=== PATIENT | female | born 1965 | race Caucasian/White ===

== ENCOUNTER 2018-05-28 09:02 | Outpatient (CLI) | payer OTHER | END 2018-05-28 09:14 | disposition home or self-care (01) | LOC: SONOGRAMA 09:02 | DX: D25.1 Intramural leiomyoma of uterus (principal) ==

== ENCOUNTER 2020-01-08 05:14 | Emergency (ER) | payer OTHER ==
[~2020-01-08] VITALS: Ht 154.9 cm; Wt 59.9 kg
== END 2020-01-08 10:22 | disposition home or self-care (01) ==
LOC: ER 05:14
DX: S43.491A Other sprain of right shoulder joint, initial encounter (principal); X50.0XXA Overexertion from strenuous movement or load, initial encounter; Y93.89 Activity, other specified; Y92.89 Other specified places as the place of occurrence of the external cause; Y99.8 Other external cause status

== ENCOUNTER 2020-05-17 08:15 | Outpatient (CLI) | payer OTHER | END 2020-05-17 08:27 | disposition home or self-care (01) | LOC: RAD 08:15 | PROVIDERS: ATTEND Internal Medicine Pulmonary Disease | DX: R05 Cough (principal) ==

== ENCOUNTER 2021-05-13 08:00 | Outpatient (CLI) | payer OTHER | END 2021-05-13 08:30 | disposition home or self-care (01) | LOC: PPH VACUNA 08:00 | PROVIDERS: ATTEND Emergency Medicine Pediatric Emergency Medicine | DX: Z23 Encounter for immunization (principal) ==

== ENCOUNTER 2021-05-13 12:59 | Outpatient (CLI) | payer OTHER | END 2021-05-13 13:09 | disposition home or self-care (01) | LOC: SONOGRAMA 12:59 → MAMO-SONO 13:15 | PROVIDERS: ATTEND Obstetrics & Gynecology | DX: N92.5 Other specified irregular menstruation (principal) ==

== ENCOUNTER 2021-11-08 07:48 | Inpatient (IN) | payer OTHER ==
[~2021-11-08] VITALS: Ht 154.9 cm; Wt 61.2 kg
== END 2021-11-15 11:25 | disposition home or self-care (01) | DRG 342 ==
LOC: ER 07:48 → SEC-K 14:38 → O/R 14:38 → SURH 11-09 09:40
PROVIDERS: ADMIT Surgery; ATTEND Surgery
PROC: BW21YZZ Computerized Tomography (CT Scan) of Abdomen and Pelvis using Other Contrast (ICD-10-PCS; 2021-11-08)
PROC: 0DTJ4ZZ Resection of Appendix, Percutaneous Endoscopic Approach (ICD-10-PCS; principal; 2021-11-08 16:00)
DX: K35.890 Other acute appendicitis without perforation or gangrene (principal); K68.11 Postprocedural retroperitoneal abscess; R10.31 Right lower quadrant pain; K59.09 Other constipation; D72.828 Other elevated white blood cell count; Z20.822 Contact with and (suspected) exposure to COVID-19; B96.29 Other Escherichia coli [E. coli] as the cause of diseases classified elsewhere; B96.89 Other specified bacterial agents as the cause of diseases classified elsewhere

== ENCOUNTER 2022-08-23 11:35 | Emergency (ER) | payer OTHER ==
[~2022-08-23] VITALS: Ht 154.9 cm; Wt 61.2 kg
[2022-08-23] MEDS ORDERED: FLONASE16 GM NS (12:23)
== END 2022-08-23 15:58 | disposition home or self-care (01) ==
LOC: ER 11:35
DX: A05.9 Bacterial foodborne intoxication, unspecified (principal)

== ENCOUNTER 2023-10-22 17:15 | Emergency (ER) | payer OTHER ==
[~2023-10-22] VITALS: Ht 154.9 cm; Wt 65.8 kg
[~2023-10-22 17:15] MED LIST: FLONASE16 GM NS
[2023-10-22] MEDS ORDERED: NEOMYCIN/POLYMYXIN B/HYDROCORT 20 DR/ML BOTTLE OT STA (18:48)
== END 2023-10-22 19:07 | disposition home or self-care (01) ==
LOC: ER 17:15
DX: H60.8X2 Other otitis externa, left ear (principal)

== ENCOUNTER 2024-07-28 07:55 | Outpatient (CLI) | payer OTHER | END 2024-07-28 08:11 | disposition home or self-care (01) | LOC: SONOGRAMA 07:55 | PROVIDERS: ATTEND Internal Medicine Gastroenterology | DX: R16.0 Hepatomegaly, not elsewhere classified (principal); E04.8 Other specified nontoxic goiter ==

== ENCOUNTER 2025-01-12 19:31 | Emergency (ER) | payer OTHER ==
[~2025-01-12] VITALS: Ht 154.9 cm; Wt 64.4 kg
[2025-01-12] MEDS ORDERED: KETOROLAC TROMETHAMINE 60 MG VIAL IM ONE ×2 (20:36→20:45)
[2025-01-12] MEDS ORDERED: CEFTRIAXONE SODIUM 1,000 MG VIAL ONE (20:36)
[2025-01-12] MEDS ORDERED: CEFTRIAXONE SODIUM 1,000 MG VIAL IM ONE (20:45)
[2025-01-12] MEDS ORDERED: NORFLEX100MG PO (21:57)
[2025-01-12] MEDS ORDERED: CEFUROXIME500 MG PO (21:57)
[2025-01-12] MEDS ORDERED: PEPCID AC20 MG PO (21:57)
== END 2025-01-12 22:03 | disposition home or self-care (01) ==
LOC: ER 19:31
DX: S91.209A Unspecified open wound of unspecified toe(s) with damage to nail, initial encounter (principal); M77.32 Calcaneal spur, left foot